=== PATIENT | female | born 1960 | race Caucasian/White ===

== ENCOUNTER 2021-12-11 11:58 | Day surgery (SDC) | payer BC ==
[~2021-12-11] VITALS: Ht 152.4 cm; Wt 63.0 kg
[~2021-12-11 11:58] MED LIST: AVAPRO150 MG PO; BRAIN MIGHT-DH1 EACH PO; DIPHENHYDRAMINE50 M1 PO; LABETALOL HCL100 MG PO; LEVOTHYROXINE137 MC1 PO; LIPITOR40 MG PO; OSTERA TABLET1 EACH PO; ZOLOFT50 MG PO
--- NOTE | 2021-12-11 13:40 | NUR ---
12/11/21 1340 Sheets,Hamida 1335 PT ARRIVED TO PACU ON 1L VIA NC, PT WAKES EASILY AND IS REORIENTED TO PACU. VSS. PT EASILY FALLS BACK TO SLEEP AND SMALL AMOUNT OF SNORING NOTED
--- NOTE | 2021-12-11 22:00 | OR ---
[facility] [address] [place], [place] [address] Signed DATE OF OPERATION: 12/11/2021 SURGEON: Duane Heredia MD PREOPERATIVE DIAGNOSIS: Colon screening. POSTOPERATIVE DIAGNOSIS: Small sessile polyp, right colon (excised cold snare technique) incompletely retrieved, however. PROCEDURE: Total colonoscopy to cecum with cold snare polypectomy x1. ANESTHESIA: Intravenous sedation, fentanyl 100 mcg and Versed 5 mg. INDICATION: A 61-year-old white woman, patient of Dr. Ernestina Mckeon. She underwent colonoscopy by [facility] in September 2010, which showed a polyp of the cecum, which was excised, but was not in fact an adenoma. She has no symptoms of bleeding, diarrhea, or constipation currently. She has no family history of colon cancer. She is admitted to undergo colon screening. She understands the risks of bleeding, infection, and perforation. FINDINGS: The prep was excellent. Complete colonoscopy was undertaken of the cecum without question. She had one polyp of the right colon, which was excised with cold snare technique. Unfortunately, the polyp was lost in an attempt at retrieval, though portions of the base of the polyp were sent for pathology as well. The remaining colon was normal. DESCRIPTION OF PROCEDURE: The patient was brought to the endoscopy suite and placed in the lateral decubitus position given intravenous sedation to the point of slurred speech and nystagmus with full cardiopulmonary monitoring. An Olympus video colonoscope was passed in the rectum. She did have an external hemorrhoid on external examination. The scope was manipulated throughout the colon ultimately intubating the cecum itself. The ileocecal valve and appendiceal orifice were normal. The scope was withdrawn from that point in the mid ascending colon was a Electronically Signed By: DUANE HEREDIA MD 12/11/21 3667 PATIENT NAME: MARGARET GILLETTE OPERATIVE REPORT DATE OF : 60 REPORT #: [id number] PHYSICIAN: DUANE HEREDIA MD PCP: ERNESTINA MCKEON MD REPORT IS CONFIDENTIAL AND NOT TO BE RELEASED WITHOUT AUTHORIZATION [facility] [address] [place], [place] [address] Signed small, which was excised with hot snare technique. Attempts at retrieval of the polyp were rather awkward and attempts were made to do so and a trap was placed to capture it as well, but was ultimately lost. The base of the polyp was mostly biopsied, though I believe all of the polyp had been excised. This tissue was sent for pathology. The scope was withdrawn from that point. Remaining colon throughout showed no sign of abnormality. The scope was removed. The patient was taken to the recovery room in good condition. CONCLUDING DIAGNOSES: 1. External hemorrhoid. 2. Sessile polyp (small) of right colon, completely excised. PLAN: Recommend repeat colonoscopy in 5 years or sooner if clinically indicated. She will return to the ongoing care of Ernestina Mckeon M.D. MD KALE Wheeler/LORIE /[id number] cc: Ernestina Mckeon MD Copies: ERNESTINA MCKEON MD ~ Electronically Signed By: DUANE HEREDIA MD 12/11/21 2200 PATIENT NAME: MARGARET GILLETTE OPERATIVE REPORT DATE OF : 60 REPORT #: [id number] PHYSICIAN: DUANE HEREDIA MD PCP: ERNESTINA MCKEON MD REPORT IS CONFIDENTIAL AND NOT TO BE RELEASED WITHOUT AUTHORIZATION
--- NOTE | 2021-12-13 14:45 | PATH ---
[facility] [address] [facility] [place] [address] Signed SPECIMEN(S): A ASCENDING/RIGHT COLON POLYP SPECIMEN SOURCE: A. ASCENDING/RIGHT COLON POLYP CLINICAL HISTORY: Screening. Postop: Polyp x 1. FINAL PATHOLOGIC DIAGNOSIS: Colon, ascending, polyp x 1, polypectomy: - Serrated polyp. - Negative for dysplasia or malignancy. COMMENT: The architecture of the polyp is not well-visualized despite multiple additional levels. The differential diagnosis includes a sessile serrated lesion or a hyperplastic polyp. NAL:cml:C2NR MICROSCOPIC EXAMINATION: Histologic sections of all submitted blocks are examined by light microscopy. These findings, together with the gross examination, support the pathologic diagnosis. GROSS DESCRIPTION: The specimen, labeled "MH, one," and designated on the requisition "ascending/right polypectomy," is received in formalin and consists of multiple justin soft tissue fragments that measure less than 0.1 up to 0.3 cm in greatest dimension. The specimen is entirely submitted in cassette (A1). AI (under the direct supervision of a pathologist) The Gross Description was prepared using a voice recognition system. The report was reviewed for accuracy; however, sound-alike word errors, addition and/or deletions may occur. If there is any question about this report, please contact Client Services. PERFORMING LABORATORY: The technical component was performed by [facility], [address] [place] [id number] (Ese Teacher: Jessica Carballo MD; CLIA# [id number]). [facility], [address] [facility]. 107, PATIENT NAME: MARGARET GILLETTE PATHOLOGY DATE OF : 60 REPORT #: [id number] PHYSICIAN: LUCY PATHOLOGY PCP: ROMMEL FLORES MD REPORT IS CONFIDENTIAL AND NOT TO BE RELEASED WITHOUT AUTHORIZATION [facility] [address] [facility] [place] [address] Signed Domin[place] [id number] (CLIA# [id number]). Diagnostician: Kelsey Hayes MD Pathologist Electronically Signed 12/13/2021 Copies: ~ PATIENT NAME: MARGARET GILLETTE PATHOLOGY DATE OF : 60 REPORT #: [id number] PHYSICIAN: LUCY PATHOLOGY PCP: ROMMEL FLORES MD REPORT IS CONFIDENTIAL AND NOT TO BE RELEASED WITHOUT AUTHORIZATION
== END 2021-12-11 14:17 | disposition home or self-care (01) ==
LOC: DS 11:58 → OPS 11:58 → DS 13:00 → OPS 13:00
PROVIDERS: ATTEND Surgery
PROC: 0DBK8ZX Excision of Ascending Colon, Via Natural or Artificial Opening Endoscopic, Diagnostic (ICD-10-PCS; principal; 2021-12-11 13:00)
DX: Z12.11 Encounter for screening for malignant neoplasm of colon (principal); D12.2 Benign neoplasm of ascending colon; K64.4 Residual hemorrhoidal skin tags; I67.1 Cerebral aneurysm, nonruptured; I10 Essential (primary) hypertension; G47.33 Obstructive sleep apnea (adult) (pediatric); E03.9 Hypothyroidism, unspecified; Z88.5 Allergy status to narcotic agent; Z88.8 Allergy status to other drugs, medicaments and biological substances
CPT/HCPCS: 99153; G0500; J2250; J3010; J7121

== ENCOUNTER 2022-07-02 15:31 | Emergency (ER) | payer BC ==
[~2022-07-02] VITALS: Ht 152.4 cm; Wt 62.6 kg
[2022-07-02] MEDS ORDERED: BLEPHAMIDE EYE3.5 GM OPTH (18:18)
[2022-07-02] MEDS ORDERED: ERYTHROMYCIN1 GM OP (18:24)
== END 2022-07-02 18:47 | disposition home or self-care (01) ==
LOC: ED 15:31
DX: H57.89 Other specified disorders of eye and adnexa (principal); I10 Essential (primary) hypertension; E03.9 Hypothyroidism, unspecified; E78.00 Pure hypercholesterolemia, unspecified; Z88.8 Allergy status to other drugs, medicaments and biological substances; Z88.5 Allergy status to narcotic agent; Z79.899 Other long term (current) drug therapy
CPT/HCPCS: 99283

== ENCOUNTER 2023-01-14 10:45 | Day surgery (SDC) | payer BC ==
[~2023-01-14] VITALS: Ht 152.4 cm; Wt 60.0 kg
[~2023-01-14 10:45] MED LIST changes: +BLEPHAMIDE EYE3.5 GM OPTH; +ERYTHROMYCIN1 GM OP; +FISH OIL 1,0001 EAC6 PO; +IRON18 MG PO; +VALACYCLOVIR1000 MG PO
[2023-01-14 10:59] VITALS: BP 138/85
--- NOTE | 2023-01-14 13:22 | NUR ---
01/14/23 1322 Leona Chan 1314 PT ARRIVED IN PACU SLEEPY WITH NO C/O'S. ABD SOFT. 1322 DR AT BEDSIDE. ALL QUESTIONS ANSWERED.
[2023-01-14 13:53] VITALS: BP 131/80
--- NOTE | 2023-01-15 10:59 | OR ---
[facility] [address] [place], [place] [address] Signed DATE OF OPERATION: 01/14/2023 SURGEON: Duane Heredia MD PREOPERATIVE DIAGNOSIS: History of serrated adenoma of the right colon 2021. POSTOPERATIVE DIAGNOSES: 1. Questionable remnant polyp right colon, excised. 2. Small new polyp of the rectosigmoid. PROCEDURE: Total colonoscopy to cecum with cold morcellation polypectomy x2. ANESTHESIA: Intravenous sedation; fentanyl 100 mcg and Versed 6 mg. INDICATION: This 62-year-old white woman is a patient Dr. Ernestina Mckeon. She is known to me from the past and undergone colonoscopy in 2021. She has no symptoms of bleeding, diarrhea or constipation. At her colonoscopy a year ago, she did have a serrated adenoma of the right colon. It was not large and was thought to be completely excised. Given the histology of that polyp, I have recommended a repeat colonoscopy on the short-term basis. The risk of bleeding, infection, and perforation related to colonoscopy was reviewed in detail with her. She understands and wished to proceed. FINDINGS: The prep was excellent. Complete colonoscopy was undertaken to the cecum. There appeared to be an area of possible polyp of the right colon. Whether this represented remnant of the previous polyp or not is uncertain. It was excised completely. Additionally, there was a small polyp of the rectosigmoid which was excised. It was probably adenomatous. There were no other findings of concern. DESCRIPTION OF PROCEDURE: The patient was brought to the endoscopy suite and placed in the lateral decubitus position, given intravenous sedation to the point of slurred speech and nystagmus. Digital rectal examination was normal. An Olympus video colonoscope was passed in the rectum and manipulated throughout the colon ultimately intubating the cecum. Ileocecal valve and appendiceal orifice were Electronically Signed By: DUANE HREEDIA MD 01/15/23 1059 PATIENT NAME: MARGARET GILLETTE OPERATIVE REPORT DATE OF : 60 REPORT #: [id number] PHYSICIAN: DUANE HEREDIA MD PCP: ERNESTINA MCKEON MD REPORT IS CONFIDENTIAL AND NOT TO BE RELEASED WITHOUT AUTHORIZATION [facility] [address] [place], [place] [address] Signed normal. Scope was withdrawn and in the mid ascending colon was a small area of mucosal change that was suggestive though not diagnostic of polyp. This may represent remnant of the previous excised polyp. This was excised with cold morcellation technique. Further withdrawal of scope showed no other abnormality into the rectosigmoid where small obvious polyp was noted, this was excised with cold morcellation technique. Retroflexed view of the rectum was undertaken as well. There were no findings there. The scope was removed and the patient was taken to the recovery room in good condition. CONCLUDING DIAGNOSES: 1. Polyps x2. 2. External hemorrhoidal change. PLAN: She will be recommended to have repeat colonoscopy in three years, sooner if symptoms should develop. We will await the histology of the polyps resected before final recommendations of course. MD KALE Wheeler/LORIE /[id number] cc: Ernestina Mckeon MD Copies: ~ Electronically Signed By: DUANE HEREDIA MD 01/15/23 1059 PATIENT NAME: MARGARET GILLETTE OPERATIVE REPORT DATE OF : 60 REPORT #: [id number] PHYSICIAN: DUANE HEREDIA MD PCP: ERNESTINA MCKEON MD REPORT IS CONFIDENTIAL AND NOT TO BE RELEASED WITHOUT AUTHORIZATION
--- NOTE | 2023-01-16 11:47 | PATH ---
[facility] [address] [facility] [place], [place] [address] Signed SPECIMEN(S): A ASCENDING/RIGHT COLON POLYP SPECIMEN(S): B SIGMOID POLYP SPECIMEN SOURCE: A. ASCENDING/RIGHT COLON POLYP B. SIGMOID POLYP CLINICAL HISTORY: Hx of serrated adenoma, 2021. Postop: Polyps x2. FINAL PATHOLOGIC DIAGNOSIS: A. Ascending/right colon polyp, polypectomy: - Sessile serrated lesion. - Negative for dysplasia and malignancy. B. Sigmoid polyp, polypectomy: - Fragments of hyperplastic polyp. DF:cml:C2NR MICROSCOPIC EXAMINATION: Histologic sections of all submitted blocks are examined by light microscopy. These findings, together with the gross examination, support the pathologic diagnosis. GROSS DESCRIPTION: A. The specimen, labeled and designated "[place], Ascending/right colon polyp," is received in formalin and consists of three justin soft tissue fragments, ranging from 0.1-0.3 cm. Entirely submitted in (A1). B. The specimen, labeled and designated "[place], sigmoid polyp," is received in formalin and consists of four justin soft tissue fragments, ranging from 0.1-0.3 cm. Entirely submitted in (B1). VB (under the direct supervision of a pathologist) The Gross Description was prepared using a voice recognition system. The report was reviewed for accuracy; however, sound-alike word errors, addition and/or deletions may occur. If there is any question about this report, please contact Client Services. PERFORMING LABORATORY: The technical component was performed by [facility], [address] [place] [address] (CLIA# [id number]). Professional interpretation was performed by [facility] PATIENT NAME: MARGARET GILLETTE PATHOLOGY DATE OF : 60 REPORT #: [id number] PHYSICIAN: INC[facility]TE PATHOLOG[facility] PCP: ROMMEL FLORES MD REPORT IS CONFIDENTIAL AND NOT TO BE RELEASED WITHOUT AUTHORIZATION [facility] [address] [place], [place] [address] Signed [facility], [facility] [place] [address] (CLIA#: [id number]) Diagnostician: [place] DO Pathologist Electronically Signed 01/16/2023 Copies: ~ PATIENT NAME: MARGARET GILLETTE PATHOLOGY DATE OF : 60 REPORT #: [id number] PHYSICIAN: LUCY PATHOLOGY PCP: ROMMEL FLORES MD REPORT IS CONFIDENTIAL AND NOT TO BE RELEASED WITHOUT AUTHORIZATION
== END 2023-01-14 14:00 | disposition home or self-care (01) ==
LOC: OPS 10:45 → DS 10:49 → OPS 12:00 → DS 12:00 → OPS 14:00
PROVIDERS: ATTEND Surgery
DX: D12.2 Benign neoplasm of ascending colon (principal); K63.5 Polyp of colon; K64.4 Residual hemorrhoidal skin tags; Z86.010 Personal history of colon polyps; I10 Essential (primary) hypertension; E03.9 Hypothyroidism, unspecified; I72.0 Aneurysm of carotid artery; G47.30 Sleep apnea, unspecified; Z88.5 Allergy status to narcotic agent; Z88.8 Allergy status to other drugs, medicaments and biological substances; Z79.899 Other long term (current) drug therapy
CPT/HCPCS: 99153; G0500; J2250; J3010; J7121